=== PATIENT | male | born 1955 | race Caucasian/White ===

== ENCOUNTER 2017-01-04 17:43 | Emergency (ER) | payer BC ==
[2017-01-04 17:56] VITALS: RESP 18
--- NOTE | 2017-01-04 18:02 | EDPHY ---
H & P Stated [facility] no loc, hematoma forehead Time Seen by Provider: 01/04/17 18:01 HPI/ROS: HPI: This is a 61-year-old male presents with Chief Complaint: mech fall -hit head on rock no loc, hematoma forehead Location: forehead Quality: hematoma Duration: 1 hour prior to arrival Signs and Symptoms: No LOC, no dizziness, no headache, no vision changes, no chest pain, no neck pain, shortness of breath Timing: Sudden Severity: [id number] Context: Patient reports that he was [place] today. It was starting to get dark and he was heard, he slipped accidentally and fell forward losing his balance. He reports that he hit his left side of forehead on a rock. Denies LOC/neck pain. He was ambulatory immediately after. He continued on the trail without difficulty. He then drove himself to the emergency room for further evaluation. He does report some mild abrasions to both his forearms but denies any chest pain, shortness of breath, abdominal pain, nausea, vomiting, decreased mentation. He takes baby aspirin daily. Unsure of his last tetanus shot. Modifying Factors: None Comment: ROS: see HPI Constitutional: No fever, no chills, no weight loss Eyes: No blurred vision Respiratory: No shortness of breath, no cough Cardiovascular: No chest pain Gastrointestinal: No nausea, no vomiting, no diarrhea Genitourinary: No dysuria Extremities: No myalgias Neurologic: No weakness, no numbness Skin: No rashes Hematologic: No bruising, no bleeding MEDICAL/SURGICAL/SOCIAL HISTORY: Medical history: htn, hyperlipidemia, gerd Surgical history: Denies Social history: Employed. CONSTITUTIONAL: Pleasant adult white male, awake and alert, no obvious distress HEENT: 3 mm contusion noted to left forehead and normocephalic, PERRL, EOMI. no globe entrapment, no raccoon eyes. no Delgadillo signs.Tympanic membranes clear. No tympanic membrane rupture. Nares patent; no septal hematoma. Oropharynx clear, no exudate and moist pink mucosa. No malocclusion. no dental trauma. Airway patent. No lymphadenopathy. NECK: supple, no midline tenderness, flexion 45 degrees, extension 45 degrees, right and left lateral flexion 45 degrees. No meningismus. Cardiovascular: Normal S1/S2, tachycardia, regular rhythm, without murmur rub or gallop. PULMONARY/CHEST: Symmetrical and nontender. no crepitus. Clear to auscultation bilaterally. Good air movement. No accessory muscle usage. ABDOMEN: Soft, nondistended, nontender, no ecchymosis, no rebound, no guarding , no peritoneal signs, no masses or organomegaly. No CVAT. PELVIC: no pain with rocking; bilateral hips flexion 125 degrees, extension 30 degrees, with no pain internal rotation and no pain external rotation. BACK: No midline tenderness, no paraspinous spasm, deep tendon reflexes 2/2, no pain with straight leg raise EXTREMITIES: 2/2 pulses, no deformities, no clubbing, no cyanosis or edema. NEUROLOGICAL: no focal neuro deficits. GCS 15. SKIN: Warm and dry, no erythema. no rash. Good capillary refill. Source: Patient Exam Limitations: No limitations - Personal History Current Tetanus/Diphtheria Vaccine: Unsure Current Tetanus Diphtheria and Acellular Pertussis (TDAP): Unsure - Medical/Surgical History Hx Asthma: No Hx Chronic Respiratory Disease: No Hx Diabetes: No Hx Cardiac Disease: No Hx Renal Disease: No Hx Cirrhosis: No Hx Alcoholism: No Hx HIV/AIDS: No Hx Splenectomy or Spleen Trauma: No Other PMH: htn, hyperlipidemia, gerd - Social History Smoking Status: Never smoked Constitutional: Initial Vital Signs Temperature (C) 37.1 C 01/04/17 17:53 Heart Rate 101 H 01/04/17 17:53 Respiratory Rate 18 01/04/17 17:53 Blood Pressure 115/80 01/04/17 17:53 O2 Sat (%) 97 01/04/17 17:53 O2 Delivery Mode Room Air Allergies/Adverse Reactions: penicillin G Allergy (Verified 01/04/17 17:52) Home Medications: Medication Instructions Recorded HCTZ (*) 01/04/17 Lisinopril 01/04/17 Vytorin 10-10 mg Tablet 01/04/17 Medical Decision Making ED Course/Re-evaluation: Head CT scan, IM medication and wound care ordered Tetanus booster given Fall accidental in nature Abrasions clean with mild soap and water and bacitracin applied. No LOC/neurological deficits. Patient denies pain and politely declines pain medications Called by Dr. Lombardi who reported head CT scan shows no acute intracranial process but does show scalp hematoma. Patient's presentation, labs, plan of care were reviewed with supervising physician. Differential Diagnosis: Head injury including but not limited to concussion, skull fracture, intraparenchymal contusion, subarachnoid, subdural and epidural hematoma. - Data Points Medications Given: Discontinued Medications Diphtheria/Tetanus/Acell Pertussis (Boostrix) 0.5 ml IM .ONCE ONE Stop: 01/04/17 18:16 Last Admin: 01/04/17 18:33 Dose: 0.5 ml Departure - Departure Disposition: Home, Routine, Self-Care Clinical Impression: Contusion of forehead Qualifiers: Encounter type: initial encounter Qualified Code(s): S00.83XA - Contusion of other part of head, initial encounter Abrasion of forearm Qualifiers: Encounter type: initial encounter Laterality: unspecified laterality Qualified Code(s): S50.819A - Abrasion of unspecified forearm, initial encounter Condition: Good Instructions: Concussion (ED), Head Injury (ED), Abrasion (ED) Additional Instructions: Take Tylenol 650 mg every 4 hours and/or ibuprofen 600 mg every 8 hours with food as needed for pain. Apply ice for 30 minutes at a time; 2-3 times per day for the next 1-2 days. Monitor for signs and symptoms of concussion. Abrasions on your forearms can be cleaned with mild soap and water and bacitracin application daily until fully healed. Head CT scan today shows no acute intracranial bleeding. Referrals: Zakia Nicholson MD [Primary Care Provider] - As per Instructions
[2017-01-04] MEDS ORDERED: TDAP ADULT 0.5 ML INJ (BOOSTRIX) IM ONE (18:15)
[2017-01-04 18:55] VITALS: BP 118/72; PULSE 89; TEMP 98.2; O2SAT 95
== END 2017-01-04 19:02 | disposition home or self-care (01) ==
DX: S00.83XA Contusion of other part of head, initial encounter (principal); S50.819A Abrasion of unspecified forearm, initial encounter; I10 Essential (primary) hypertension; Z23 Encounter for immunization; W01.198A Fall on same level from slipping, tripping and stumbling with subsequent striking against other object, initial encounter; Y99.8 Other external cause status

== ENCOUNTER → 2018-04-01 | Outpatient (CLI) | payer OTHER | LOC: BMCIMAGING 10:52 | PROVIDERS: ATTEND Internal Medicine | DX: Z01.811 Encounter for preprocedural respiratory examination (principal) ==